=== PATIENT | female | born 1990 | race African-American/Black ===

== ENCOUNTER 2024-08-21 00:29 | Emergency (ER) | payer OTHER ==
[~2024-08-21] VITALS: Ht 165.1 cm; Wt 94.5 kg
[2024-08-21 00:48] VITALS: O2SAT 99
[2024-08-21] MEDS: TETANUS, DIPHTHERIA, PERTUSSIS VAC/PF 0.5ML (>10YR OLD) IM ONE (02:15)
[2024-08-21] MEDS: LIDOCAINE HCL/PF 1% 10 MG/ML 5ML VIAL INFIL ONE (02:15)
[2024-08-21 02:56] VITALS: BP 104/65; PULSE 90; RESP 14; TEMP 36.9; O2SAT 99
[2024-08-21] MEDS: KETOROLAC 15MG/ML VIAL IM ONE (03:36)
[2024-08-21] MEDS ORDERED: CEPH500C2 MT (04:19)
[2024-08-21] MEDS ORDERED: SULF1TAB48 MT (04:19)
== END 2024-08-21 04:35 | disposition home or self-care (01) ==
LOC: ER 00:29
DX: L05.01 Pilonidal cyst with abscess (principal); J45.909 Unspecified asthma, uncomplicated
CPT/HCPCS: 81025; 10080; 96372; 99285; J1885; J2003; Z7610 ×2; 10060; 10061; 90715